=== PATIENT | female | born 1970 | race Caucasian/White ===

== ENCOUNTER 2016-12-06 05:10 | Observation (INO) ==
[2016-12-06] MEDS ORDERED: REGLAN ONE (05:31)
[2016-12-06] MEDS ORDERED: PEPCID ONE (05:31)
[2016-12-06] MEDS ORDERED: LR 1,000 ML ONE (05:32)
[2016-12-06] MEDS ORDERED: CLINDAMYCIN 600 MG/NS 600 MG/50 ML IVPB ONE (05:32)
[2016-12-06] MEDS ORDERED: DIPRIVAN 1% ONE (06:42)
[2016-12-06] MEDS ORDERED: XYLOCAINE-MPF 2% ONE (06:42)
[2016-12-06] MEDS ORDERED: FENTANYL ONE (06:57)
[2016-12-06] MEDS ORDERED: ZOFRAN ONE (07:01)
[2016-12-06] MEDS ORDERED: DECADRON ONE (07:01)
[2016-12-06] MEDS ORDERED: MORPHINE ONE (07:55)
--- NOTE | 2016-12-06 08:54 | OPERATIVE NOTE ---
PROCEDURE DATE: 12/06/2016 PREOPERATIVE DIAGNOSIS: Right great toe infection after traumatic amputation. POSTOPERATIVE DIAGNOSIS: Right great toe infection after traumatic amputation. PROCEDURES PERFORMED: 1. Right irrigation and debridement to bone, right great toe. 2. Application of wound VAC. SURGEON: Dr. Montrell Banuelos. FRAME OPENER: Loly Osorio, nurse practitioner. ANESTHESIA: General with LMA. TOURNIQUET TIME: 0. IMPLANTS: None. DISPOSITION: To PACU, hemodynamically stable. INDICATION FOR PROCEDURE: Ms. Fernandes is a 46-year-old female who unfortunately suffered a traumatic amputation of her great toe by a lawnmower about a week out. Originally took her to the operating room for irrigation, debridement, and closure. Unfortunately, she subsequently developed an infection. I have been treating that with Levaquin and clindamycin. The erythema has improved, but she has started getting increased drainage at the end of the toe, so I discussed with her about another washout and debridement. She expressed understanding and wished to proceed. DESCRIPTION OF PROCEDURE: Ms. Fernandes was identified in the preoperative holding area. Right great toe was marked as appropriate surgical site. She was then wheeled to the operating room and placed supine on the operating table. All bony prominences were well padded. She was induced under general anesthesia. LMA was placed. Tourniquet was placed to the right thigh. Right lower extremity was then prepped with Betadine solution, and draped in a normal sterile fashion. Surgical pause was performed. We identified the correct patient, the correct site, and the correct procedure. Preop antibiotics were given, which was IV clindamycin. I started with removing her old sutures, and then removing some of the deep sutures as well. A lot of the tissue still looked good, but there were a little bit of areas that were grayish and did not look like they had good blood supply, so I excisionally debrided those areas with a scalpel and pickup, and did skin, subcutaneous tissue, tendon, all the way down to the bone. Bone actually looked good in there, and so did her extensor flexor tendons, but she did have what looked like a little bit of a track up that extensor tendon dorsally, and I opened up all that, and expressed out any fluid that was there. I used a rongeur also to excisionally debride the wound, that was mainly the subcutaneous wound. We had some good bleeding of the end of the toe, and everything actually looked pretty clean at this point. I then irrigated everything copiously with normal saline, even up in that extensor tendon area. I then elected to put a wound VAC on because I did not think closing it back up would be a good option for her, so I placed a wound VAC sponge over the end of the toe in that open wound, sealed it, and then placed it to 125 mm of suction, and then we wrapped the foot in an Jean Claude wrap. The tourniquet was never let up during the case. The patient was then moved to her own bed, and taken to the PACU in stable condition. Postoperatively, the patient will be admitted to the hospital. I will have her on IV clindamycin and p.o. Levaquin for antibiotics, and will get her wound VAC changed this . If everything looks good then, hopefully we will be able to discharge her home at that time. cc: Montrell Banuelos MD
[2016-12-06] MEDS ORDERED: TYLENOL PO PRN (09:33)
[2016-12-06] MEDS ORDERED: ZOFRAN IV PRN (09:45)
[2016-12-06] MEDS ORDERED: PERICOLACE PO PRN (09:45)
[2016-12-06] MEDS: WELLBUTRIN SR PO SCH (12:17)
[2016-12-06] MEDS: LEVAQUIN PO SCH (12:17)
[2016-12-06] MEDS: SYNTHROID PO SCH (12:18)
[2016-12-06] MEDS: TYLENOL PO PRN ×3 (12:41→22:05)
[2016-12-06] MEDS ORDERED: CLEOCIN PO SCH (13:00)
[2016-12-06] MEDS: CLINDAMYCIN 300 MG in NS 50 ML IV SCH ×2 (16:45→22:05)
[2016-12-06] MEDS: PERIDEX MT SCH (22:05)
[2016-12-07] MEDS: OXY IR PO PRN ×2 (02:00→22:36)
[2016-12-07] MEDS: TYLENOL PO PRN ×3 (06:17→20:30)
[2016-12-07] MEDS: LOVENOX SUBQ SCH (06:18)
[2016-12-07] MEDS: CLINDAMYCIN 300 MG in NS 50 ML IV SCH ×3 (06:18→22:37)
--- NOTE | 2016-12-07 08:04 | PROGRESS NOTE ---
DATE: 12/07/2016 SUBJECTIVE: Ms. Fernandes is postop day 1 after right great toe irrigation and debridement and application of wound VAC. She is doing really well in bed, not really complaining of a lot of pain. OBJECTIVE: Right lower extremity exam: The wound VAC is still in good position to 125 mm suction. The erythema that was around the toe is improving. ASSESSMENT: Status post right great toe irrigation and debridement and application of wound VAC. PLAN: I think Ms. Fernandes is doing better. We are going to plan to change her wound VAC tomorrow, and if everything looks good, then will plan on discharging her home. cc: Montrell Banuelos MD
[2016-12-07] MEDS: LEVAQUIN PO SCH (10:45)
[2016-12-07] MEDS: WELLBUTRIN SR PO SCH (10:45)
[2016-12-07] MEDS: PERIDEX MT SCH ×2 (10:45→22:30)
[2016-12-07] MEDS: SYNTHROID PO SCH (10:45)
[2016-12-08] MEDS: TYLENOL PO PRN ×2 (04:22→10:27)
[2016-12-08] MEDS: LOVENOX SUBQ SCH (06:29)
[2016-12-08] MEDS: CLINDAMYCIN 300 MG in NS 50 ML IV SCH (06:29)
[2016-12-08] MEDS ORDERED: SYNTHROID PO SCH (07:00)
--- NOTE | 2016-12-08 07:07 | PROGRESS NOTE ---
DATE: 12/08/2016 SUBJECTIVE DATA: Ms. Fernandes is postop day 2 after a right great toe irrigation and debridement and application of a wound VAC. She is doing very well. She is not complaining of any pain. She states she has not had any fevers or chills. OBJECTIVE DATA: Right lower extremity exam: The wound VAC is secure and to suction. There is no notable erythema around the wound. ASSESSMENT: Status post right great toe irrigation and debridement and application of wound VAC. PLAN: Overall, Ms. Fernandes looks better. Will plan to discharge her with a wound VAC, hopefully today. Keshia, the wound care nurse, is going to come look at the wound and change the wound VAC, and then hopefully she will be ready for discharge. Dictated by SANJANA Moulton for Montrell Banuelos MD cc: SANJANA Moulton MD
[2016-12-08 07:36] VITALS: BP 151/78
[2016-12-08] MEDS: PERIDEX MT SCH (10:27)
[2016-12-08] MEDS: LEVAQUIN PO SCH (10:27)
[2016-12-08] MEDS: WELLBUTRIN SR PO SCH (10:27)
[2016-12-08] MEDS: OXY IR PO PRN (11:10)
--- NOTE | 2016-12-08 16:03 | DISCHARGE SUMMARY ---
ADMISSION DATE: 12/06/2016 DISCHARGE DATE: 12/08/2016 DISCHARGE DIAGNOSIS: Status post right great toe irrigation and debridement, application of wound VAC. PROCEDURES: On 12/04/2016, Dr. Banuelos performed a right great toe irrigation, debridement and application of wound VAC. HOSPITAL COURSE: Ms. Fernandes is a 46-year-old female, who unfortunately suffered a traumatic amputation of her right great toe by a maintenance construction helper about a week ago. Originally , she was taken to the operating room for irrigation, debridement and closure. Unfortunately, she subsequently developed an infection. She was started on Levaquin and clindamycin. She was brought to the OR for additional irrigation and debridement and a wound VAC was applied to the area. She tolerated the procedure well. She was transferred to PACU. She recovered well in PACU and was transferred to [address] [place] [address]. We continued clindamycin and Levaquin during the hospital stay. She has tolerated the wound VAC well. Today on assessment, the toe has reduced erythema and overall healthy tissue underneath. DISCHARGE VITAL SIGNS: Temperature is 98.4 degrees, her pulse is 82, respiratory is 18, blood pressure 151/78. She is 100% on room air. At this time, she is ready for discharge DISCHARGE MEDICATIONS: Wellbutrin 150 mg p.o. q.a.m., Levaquin 750 mg p.o. daily x14 days. Aspirin 325 mg p.o. b.i.d. for 30 days. Synthroid 25 mcg p.o. daily. DISCHARGE DISPOSITION: We will be discharging Ms. Fernandes home with home health. DISCHARGE INSTRUCTIONS: Home health will be managing her wound VAC. We also discharged her home on Levaquin orally for antibiotics. We will continue her aspirin at home since she will have limited weightbearing for DVT prophylaxis. We will follow up with her in clinic this coming Monday. I reviewed with her signs and symptoms of infection and things to be aware of. She understands to call the office with any questions or concerns. Dictated by SANJANA Moulton for Montrell Banuelos MD cc: SANJANA Moulton MD [facility]
== END 2016-12-08 15:18 | disposition home health service (06) ==
LOC: OR 05:10 → 4N 05:10
PROVIDERS: ADMIT Orthopaedic Surgery; ATTEND Orthopaedic Surgery